=== PATIENT | male | born 1995 | race Two or more races ===

== ENCOUNTER 2019-10-05 01:03 | Emergency (ER) | payer SELFPAY | END 2019-10-05 01:22 | disposition left against medical advice (07) | LOC: ER 01:08 | DX: Z04.1 Encounter for examination and observation following transport accident (principal); Z02.89 Encounter for other administrative examinations; V49.49XA Driver injured in collision with other motor vehicles in traffic accident, initial encounter; Y93.89 Activity, other specified; Y99.8 Other external cause status; Y92.410 Unspecified street and highway as the place of occurrence of the external cause ==